=== PATIENT | female | born 1990 | race African-American/Black ===

== ENCOUNTER 2016-02-29 05:16 | Day surgery (SDC) | payer MEDICAID ==
[2016-02-28 12:30] LABS: HEMATOCRIT 38.8 % (36.0-48.0); HEMOGLOBIN 12.6 g/dL (12-16); MCH 28.1 pg (26.0-34.0); MCHC 32.5 g/dL (31.0-37.0); MCV 86.4 fL (80.0-100.0); MEAN PLATELET VOLUME 11.3 fL (7.4-10.4); RBC 4.49 10x6/uL (4.00-5.40); RDW 14.1 % (11.5-14.5)
[~2016-02-29] VITALS: Ht 165.1 cm; Wt 64.0 kg
[~2016-02-29 05:16] MED LIST: IBUPROFEN600 MG PO; PERCOCET 5-3251 TAB PO; PRENATAL VITAMIN; TUMS500 MG; VALTREX500 MG PO
[2016-02-29 06:40] VITALS: BP 137/73; Ht 165.1 cm; Wt 64.0 kg
[2016-02-29 07:03] LABS: HCG URINE NEGATIVE (NEGATIVE)
[2016-02-29] MEDS ORDERED: CYCLOBENZAPRINE10 MG PO (09:17)
[2016-02-29] MEDS ORDERED: HYDROCODON-ACE1 EAC7 PO (09:18)
--- NOTE | 2016-02-29 12:46 | OP ---
PATIENT NAME: KATHRINE MANJARREZ MEDICAL RECORD: [id number] LOCATION:[facility] ADMISSION DATE: SURGEON: FELICITAS PERAZA MD DATE OF OPERATION: 02/29/2016 SURGEON: Felicitas Peraza MD PREOPERATIVE DIAGNOSIS: Ventral abdominal hernia. POSTOPERATIVE DIAGNOSIS: Ventral abdominal hernia. PROCEDURE PERFORMED: Laparoscopic ventral hernia repair with mesh. ANESTHESIA: General. COMPLICATIONS: None. SPECIMENS: None. Case was clean. OPERATIVE COURSE: After consent was obtained, the patient was taken to the operating room and placed in the supine position on the operating table. Next, general anesthesia was given via nasoendotracheal intubation. Next, the abdomen was prepped and draped in typical sterile fashion. A timeout was taken to confirm the correct patient and procedure. An Ioban dressing was placed. Local anesthetic was injected in the left upper quadrant at Olmedo's point. A stab incision was made with 11-blade scalpel. Using a 5-mm bladeless optical trocar, the abdomen was entered under direct laparoscopic vision. Adequate pneumoperitoneum was achieved. The abdominal cavity was inspected. No evidence of bowel injury. No evidence of bleeding. Next, 3 additional trocars were placed, a 12-mm trocar in the left lateral quadrant, 5-mm trocar in the left lower quadrant and 5-mm trocar in the right lateral quadrant. There was a 4 x 4 cm hernia superior to the umbilicus. The preperitoneal fat was taken down with blunt dissection and electrocautery. The hernia sac was dissected with electrocautery. A small umbilical hernia was identified just inferior to the ventral hernia. A 4-inch Ventralight ST mesh with Echo positioning system was then placed into the abdomen through the 12-mm trocar. The echo position system was deployed. A Hemanth-Hazel was used to deliver the positioning system through the hernia defect. The mesh was in place against the anterior abdominal wall. It was then secured in a double crown fashion using the OptiFix tacking device. The Echo positioning system was removed through the 12-mm trocar. Tacks was then used to secure the mesh. At this time, the abdominal cavity was inspected. No evidence of bowel injury. No evidence of bleeding. All the remaining instruments were removed. The abdomen was desufflated. Trocars removed. Skin was closed with 4-0 Monocryl, Mastisol and Steri-Strips. At the end of the case, all needle and instrument counts were correct. No complications occurred. The patient was extubated and transferred to the PACU in stable condition. TRANSINT:[id number] Voice Confirmation ID: [id number] DOCUMENT ID: [id number] OPERATIVE REPORT [id number] KATHRINE MANJARREZ,FELICITAS Constantino MD at 1246 CC: [id number] DICTATION DATE: 02/29/16915 SPEECH LANGUAGE PATHOLOGY ASSISTANT: 02/29/16 0947 REG [facility] [address] [id number]
--- NOTE | 2016-02-29 12:48 | NUR ---
UP TO BATHROOM, UNABLE TO VOID AT THIS TIME. APPLE JUICE GIVEN PER REQUEST.
--- NOTE | 2016-02-29 13:09 | NUR ---
UP TO BATHROOM AND VOIDED. IV REMOVED INTACT. DISCHARGE INSTRUCTIONS AND RX FOR NORCO AND FLEXERIL GIVEN.
--- NOTE | 2016-02-29 14:00 | NUR ---
DISCHARGED HOME VIA .
== END 2016-02-29 14:00 | disposition home or self-care (01) ==
LOC: D.PAN 05:16 → D.OPS 08:00 → D.PAN 08:00
PROVIDERS: Anesthesiology; Surgery
DX: K43.9 Ventral hernia without obstruction or gangrene (principal)

== ENCOUNTER 2018-02-13 01:20 | Emergency (ER) | payer MEDICAID ==
[~2018-02-13] VITALS: Ht 165.1 cm; Wt 74.1 kg
[~2018-02-13 01:20] MED LIST changes: +CYCLOBENZAPRINE10 MG PO; +HYDROCODON-ACE1 EAC7 PO
[2018-02-13 01:22] VITALS: Ht 165.1 cm; Wt 74.1 kg
[2018-02-13] MEDS ORDERED: PROVENTIL/2.5 MG/3 M INH (01:23)
[2018-02-13] MEDS ORDERED: ROBAXIN500 MG PO (02:33)
[2018-02-13] MEDS ORDERED: TORADOL10 MG PO (02:33)
[2018-02-13 02:40] VITALS: BP 129/74
== END 2018-02-13 02:40 | disposition home or self-care (01) ==
LOC: D.ER 01:20
DX: S40.012A Contusion of left shoulder, initial encounter (principal); S80.02XA Contusion of left knee, initial encounter; V49.9XXA Car occupant (driver) (passenger) injured in unspecified traffic accident, initial encounter; Y93.89 Activity, other specified; Y92.410 Unspecified street and highway as the place of occurrence of the external cause

== ENCOUNTER 2018-02-19 10:01 | Emergency (ER) | payer MEDICAID ==
[~2018-02-19] VITALS: Ht 165.1 cm; Wt 74.1 kg
[~2018-02-19 10:01] MED LIST changes: +PROVENTIL/2.5 MG/3 M INH; +ROBAXIN500 MG PO; +TORADOL10 MG PO
[2018-02-19 10:14] VITALS: BP 123/75; Ht 165.1 cm; Wt 74.1 kg
[2018-02-19] MEDS ORDERED: TORADOL10 MG PO (12:32)
[2018-02-19] MEDS ORDERED: NEURONTIN 300300 MG PO (12:32)
== END 2018-02-19 13:10 | disposition home or self-care (01) ==
LOC: D.ER 10:01
DX: M54.2 Cervicalgia (principal); V49.9XXD Car occupant (driver) (passenger) injured in unspecified traffic accident, subsequent encounter

== ENCOUNTER 2020-05-25 10:00 | Emergency (ER) | payer MEDICAID ==
[~2020-05-25] VITALS: Ht 165.1 cm; Wt 75.5 kg
[~2020-05-25 10:00] MED LIST changes: +NEURONTIN 300300 MG PO
[2020-05-25 10:03] VITALS: BP 126/71; Ht 165.1 cm; Wt 75.5 kg
[2020-05-25 10:26] LABS: BASOPHILS 0.4 % (0-2); EOSINOPHILS 0.9 % (0-7); HEMATOCRIT 38.6 % (36.0-48.0); HEMOGLOBIN 12.7 g/dL (12-16); IMMATURE GRANULOCYTES 0.1 % (0-5); LYMPHOCYTES 40.8 % (15-50); MCH 28.6 pg (26.0-34.0); MCHC 32.9 g/dL (31.0-37.0); MCV 86.9 fL (80.0-100.0); MEAN PLATELET VOLUME 11.2 fL (7.4-10.4); MONOCYTES 8.3 % (2-11); NEUTROPHILS 49.5 % (40-80); PLATELET COUNT 236 10x3/uL (130-400); RBC 4.44 10x6/uL (4.00-5.40); RDW 12.8 % (11.5-14.5); WBC 6.9 10x3/uL (4.8-10.8)
[2020-05-25 10:32] LABS: CALC OSMOLALITY 277 mosm/kg (275-300); CALCIUM 8.9 mg/dL (8.5-10.1); CARBON DIOXIDE 25.1 mmol/L (21.0-32.0); CHLORIDE - SERUM 105 mmol/L (98-107); GLUCOSE 82 mg/dL (74-106); POTASSIUM - SERUM 3.4 mmol/L (3.5-5.1); SODIUM 140 mmol/L (136-145); UREA NITROGEN 13 mg/dL (7-18); eGFR NON AFRICAN AMERICAN 70 mL/min (90-120)
[2020-05-25 10:49] LABS: ALBUMIN 3.7 g/dL (3.4-5.0); ALKALINE PHOSPHATASE 68 U/L (30-120); ALT (SGPT) 16 U/L (10-68); BILIRUBIN - TOTAL 0.49 mg/dL (0.2-1.3); CKMB 0.5 U/L (0.0-3.6); CREATINE KINASE 85 UL (21-215); MAGNESIUM - SERUM 2.2 mg/dL (1.8-2.4); PROTEIN - SERUM 7.4 g/dL (6.4-8.2); TROPONIN-I < 0.017 ng/mL (0.000-0.060)
[2020-05-25 10:59] LABS: INR 1.07 (0.85-1.17); PROTIME 12.9 SECONDS (11.6-15.0)
[2020-05-25 12:07] LABS: BILIRUBIN NEGATIVE (NEGATIVE); KETONE NEGATIVE (NEGATIVE); NITRITE NEGATIVE (NEGATIVE); UROBILINOGEN NORMAL mg/dL (< 2)
[2020-05-25] MEDS ORDERED: ALBUTEROL SULF8.5 GM INH (13:17)
[2020-05-25] MEDS ORDERED: MEDROL DOSE PACK4 MG PO (13:17)
== END 2020-05-25 13:28 | disposition home or self-care (01) ==
LOC: D.ER 10:00
PROVIDERS: Family Medicine
DX: R07.89 Other chest pain (principal); R09.89 Other specified symptoms and signs involving the circulatory and respiratory systems